=== PATIENT | male | born 1950 | race Caucasian/White ===

== ENCOUNTER 2023-07-20 15:26 | Emergency (ER) | payer BC, OTHER ==
--- NOTE | 2023-07-20 15:54 | RAD REPORT ---
EXAM DESCRIPTION: CT - Head Brain Wo Cont - 07/20/2023 3:48 pm CLINICAL HISTORY: trauma, prior bleed, on blood thinners Headache, drowsiness COMPARISON: No comparisons TECHNIQUE: All CT scans are performed using dose optimization technique as appropriate and may inclu de automated exposure control or mA/KV adjustment according to patient size. FINDINGS: No intracranial hemorrhage, hydrocephalus or extra-axial fluid collection.Moderate general ized brain atrophy is present with mild periventricular and deep white matter chronic microvascular i schemic changes.No areas of brain edema or evidence of midline shift. Vertebral atherosclerosis. The paranasal sinuses and mastoids are clear. The calvarium is intact. Left-sided petra holes noted. IMPRESSION: No acute intracranial abnormality.
--- NOTE | 2023-07-20 15:57 | ER ---
Nurse's Notes [facility] Name: Trever Mcqueen Age: 73 yrs Sex: Male : 1950 Arrival Date: 07/20/2023 Time: 15:26 Bed 4 Private MD: Diagnosis: Contusion of scalp Presentation: 07/20 15:40 Chief complaint: Patient states: hx of brain bleed about 5 months ago, he hit his head iw while getting into the car last Saturday , has had pain to top of head and left side of head since then, no neuro deficits noted. Coronavirus screen: At this time, the client does not indicate any symptoms associated with coronavirus-19. Ebola Screen: Patient negative for fever greater than or equal to 101.5 degrees Fahrenheit, and additional compatible Ebola Virus Disease symptoms Patient denies exposure to infectious person. Patient denies travel to an Ebola-affected area in the 21 days before illness onset. No symptoms or risks identified at this time. Initial Sepsis Screen: Does the patient meet any 2 criteria? No. Patient's initial sepsis screen is negative. Does the patient have a suspected source of infection? No. Patient's initial sepsis screen is negative. Risk Assessment: Do you want to hurt yourself or someone else? Patient reports no desire to harm self or others. 15:40 Method Of Arrival: Ambulatory iw 15:40 Acuity: JOAN 3 iw 16:15 Onset of symptoms was July 20, 2023. ph Historical: - Allergies: 15:44 No Known Allergies; iw - Immunization history:: Adult Immunizations unknown. - Social history:: Smoking status: unknown. Screenin:46 [facility] ED Fall Risk Assessment (Adult) Score/Fall Risk Level 0 - 2 = Low Risk. Abuse iw screen: Denies threats or abuse. Denies injuries from another. Nutritional screening: No deficits noted. Tuberculosis screening: No symptoms or risk factors identified. Assessment: 15:44 General: Appears in no apparent distress. Behavior is calm, cooperative. Pain: iw Complains of pain in head. Neuro: Level of Consciousness is awake, alert, obeys commands, Oriented to person, place, time, situation, Moves all extremities. Full function. Cardiovascular: Patient's skin is warm and dry. Vital Signs: 15:40 BP 173 / 93; Pulse 66; Resp 16; Temp 98.1; Pulse Ox 100% on R/A; iw 15:52 BP 153 / 80; Pulse 60; Resp 16; Pulse Ox 100% on R/A; iw 16:14 BP 115 / 89; Pulse 62; Resp 18; Pulse Ox 98% on R/A; ph NIH Stroke Scale Scores: 15:43 NIHSS Score: 0 sb4 ED Course: 15:29 Patient arrived in ED. mr 15:29 Linda Cardoza PA-C is PHCP. sb4 15:29 Erasmo Iverson MD is Attending Physician. sb4 15:40 Yasmine Auguste, DEQUAN is Primary Nurse. iw 15:41 Triage completed. iw 15:41 Arm band placed on. iw 15:47 Patient has correct armband on for positive identification. iw 15:47 No provider procedures requiring assistance completed. iw 15:50 Head Brain Wo Cont CT In Process Unspecified. EDMS 16:15 Patient did not have IV access during this emergency room visit. ph Administered Medications: No medications were administered Medication: 15:46 VIS not applicable for this client. iw Outcome: 15:57 Discharge ordered by . sb4 16:15 Discharged to home ambulatory, with family, 16:15 Condition: good 16:15 Discharge instructions given to patient, Instructed on discharge instructions, follow up and referral plans. Demonstrated understanding of instructions, follow-up care, 16:15 Patient left the ED. ph NIH Stroke Scale - NIH Stroke Score Date: 07/20/2023 Time: 15:43 Total Score = 0 10. Dysarthria (speech clarity - read or repeat words) - 0(Normal) 11. Extinction and Inattention (visual/tactile/auditory/spatial/personal) - 0(No abnormality) 1a. Level of Consciousness (LOC) - 0(Alert) 1b. Level of Consciousness (LOC) (Month \T\ Age) - 0(Both) 1c. LOC Commands (Open \T\ Closes Eyes/Autocad Detailer) - 0(Both) 2. Best Gaze (Lateral Gaze Paresis) - 0(Normal) 3. Visual Field Loss - 0(No visual loss) 4. Facial Palsy - 0(Normal) 5a. Left Arm: Motor (10-second hold) - 0(No drift) 5b. Right Arm: Motor (10-second hold) - 0(No drift) 6a. Left Leg: Motor (5-second hold - always test supine) - 0(No drift) 6b. Right Leg: Motor (5-second hold - always test supine) - 0(No drift) 7. Limb Ataxia (finger/nose \T\ heel/bruner - test with eyes open) - 0(Absent) 8. Sensory Loss (pinprick arms/legs/face) - 0(Normal) 9. Best Language: Aphasia (description/naming/reading) - 0(No aphasia) Initials: sb4 Signatures: Dispatcher [employer] EDMN Sierra Abrams, Reg Reg mr Yasmine Auguste, RN RN iw Lizabeth Brady RN RN Linda Munguia, PA-Roseanna PA-Roseanna sb4
--- NOTE | 2023-07-20 15:57 | EDPHYS ---
Physician Documentation [facility] Name: Trever Mcqueen Age: 73 yrs Sex: Male : 1950 Arrival Date: 07/20/2023 Time: 15:26 Bed 4 Private MD: ED Physician Erasmo Iverson HPI: 07/20 15:40 This 73 yrs old Male presents to ER via Unassigned with complaints of Head pain. sb4 15:41 Patient states that he had a traumatic brain bleed requiring surgical intervention sb4 about 1 year ago. He has no permanent deficit. He states that 1 week ago, he hit the top of his head and now is having continued pain to the area and wants to make sure he does not have another bleed. He does not have any neurologic deficits, like he did at the time of his prior bleed. He does report taking blood thinners, but is not sure what the name of it is. He denies any numbness, tingling, weakness, dysphagia, aphasia, facial droop, ataxia. Historical: - Allergies: 15:44 No Known Allergies; iw - Immunization history:: Adult Immunizations unknown. - Social history:: Smoking status: unknown. ROS: 15:41 Constitutional: Negative for fever, chills, and weight loss, sb4 15:41 Neuro: Positive for headache, 15:41 All other systems are negative, Exam: 15:43 Constitutional: This is a well developed, well nourished patient who is awake, alert, sb4 and in no acute distress. Eyes: Extra-ocular motions intact. Periorbital areas with no swelling, redness, or edema. ENT: Mucous membranes moist. Cardiovascular: Regular rate and rhythm with a normal S1 and S2. Respiratory: Lungs have equal breath sounds bilaterally, clear to auscultation and percussion. No rales, rhonchi or wheezes noted. No increased work of breathing, no retractions or nasal flaring. Abdomen/GI: Soft, non-tender, no distension. Skin: Warm, dry with normal turgor. Normal color with no rashes, no lesions, and no evidence of cellulitis. MS/ Extremity: Pulses equal, no cyanosis. Neurovascular intact. Full, normal range of motion. Neuro: Awake and alert, GCS 15, oriented to person, place, time, and situation. Motor strength 5/5 in all extremities. Sensory grossly intact. 15:43 Head/face: tender to palpation left parietal, no swelling, erythema, bruising, laceration. Vital Signs: 15:40 BP 173 / 93; Pulse 66; Resp 16; Temp 98.1; Pulse Ox 100% on R/A; iw 15:52 BP 153 / 80; Pulse 60; Resp 16; Pulse Ox 100% on R/A; iw 16:14 BP 115 / 89; Pulse 62; Resp 18; Pulse Ox 98% on R/A; ph NIH Stroke Scale Scores: 15:43 NIHSS Score: 0 sb4 MDM: 15:32 Patient medically screened. sb4 15:43 Differential diagnosis: brain bleed, concussion, scalp contusion, headache. sb4 15:57 Data reviewed: vital signs, nurses notes, radiologic studies, and as a result, I will sb4 discharge patient. Care significantly affected by the following chronic conditions: Hypertension. Counseling: I had a detailed discussion with the patient and/or guardian regarding the historical points, exam findings, and any diagnostic results supporting the discharge/admit diagnosis, the presence of at least one elevated blood pressure reading (>120/80) during this emergency department visit, radiology results, to return to the emergency department if symptoms worsen or persist or if there are any questions or concerns that arise at home. 07/20 15:40 Order name: Head Brain Wo Cont CT; Complete Time: 15:55 sb4 Administered Medications: No medications were administered Disposition: 16:44 Co-signature as Attending Physician, Erasmo Iverson MD I reviewed the patient's care rt provided by the Advanced Practice Provider and agree with the diagnosis and treatment plan. Disposition Summary: 07/20/23 15:57 Discharge Ordered Notes: Location: Home sb4 Problem: an ongoing problem sb4 Symptoms: are unchanged sb4 Condition: Stable sb4 Diagnosis - Contusion of scalp sb4 Followup: sb4 - With: Emergency Department - When: As needed - Reason: Trouble breathing, Worsening of condition Discharge Instructions: - Discharge Summary Sheet sb4 - Facial or Scalp Contusion, [id number] sb4 Forms: - Medication Reconciliation Form sb4 - Thank You Letter sb4 - Antibiotic Education sb4 - Prescription Opioid Use sb4 - Patient Portal Instructions sb4 - Leadership Thank You Letter sb4 NIH Stroke Scale - NIH Stroke Score Date: 07/20/2023 Time: 15:43 Total Score = 0 10. Dysarthria (speech clarity - read or repeat words) - 0(Normal) 11. Extinction and Inattention (visual/tactile/auditory/spatial/personal) - 0(No abnormality) 1a. Level of Consciousness (LOC) - 0(Alert) 1b. Level of Consciousness (LOC) (Month \T\ Age) - 0(Both) 1c. LOC Commands (Open \T\ Closes Eyes/Web Worker) - 0(Both) 2. Best Gaze (Lateral Gaze Paresis) - 0(Normal) 3. Visual Field Loss - 0(No visual loss) 4. Facial Palsy - 0(Normal) 5a. Left Arm: Motor (10-second hold) - 0(No drift) 5b. Right Arm: Motor (10-second hold) - 0(No drift) 6a. Left Leg: Motor (5-second hold - always test supine) - 0(No drift) 6b. Right Leg: Motor (5-second hold - always test supine) - 0(No drift) 7. Limb Ataxia (finger/nose \T\ heel/bruner - test with eyes open) - 0(Absent) 8. Sensory Loss (pinprick arms/legs/face) - 0(Normal) 9. Best Language: Aphasia (description/naming/reading) - 0(No aphasia) Initials: sb4 Signatures: Dispatcher [employer] Yasmine Marie, Lizabeth Pinon RN, RN RN ph Brown, Sophia, PAMarcel PAMarcel sb4 Erasmo Iverson MD MD rt
[2023-07-20 16:45] VITALS: TEMP 98.1
[2023-07-20 16:51] VITALS: BP 115/89; O2SAT 98
== END 2023-07-20 16:15 | disposition home or self-care (01) ==
LOC: ER 15:26
DX: S00.93XA Contusion of unspecified part of head, initial encounter (principal); W22.8XXA Striking against or struck by other objects, initial encounter; Y93.9 Activity, unspecified; Y92.9 Unspecified place or not applicable; Z87.820 Personal history of traumatic brain injury
CPT/HCPCS: 70450; 99283